=== PATIENT | female | born 1985 | race Caucasian/White ===

== ENCOUNTER 2016-05-02 10:37 | Observation (INO) | payer OTHER ==
--- NOTE | ~2016-05-02 | HP ---
Unit #: [id number] #: [id number] Patient: MOE CALVIN [id number] [address] [place], [place] [address] [id number] I MR#: [id number] NAME: MOE CALVIN ROOM: 464 Age: 30 Sex: F Admission Date: 05/02/2016 : 1985 Attending Physician: Elieser Jordan M.D. Primary Care Physician: [facility] HISTORY AND PHYSICAL ADMITTING DIAGNOSES 1. Right ureteral stone. 2. Urinary tract infection. CHIEF COMPLAINT Right flank pain. HISTORY OF PRESENT ILLNESS The patient is a pleasant 30-year-old female with a history of nephrolithiasis. She has passed multiple stones spontaneously and has also previous had an ESWL. She presents with a one-day history of right flank and lower quadrant pain. She has had subjective fever at home but no documented fevers. CT scan of the abdomen and pelvis revealed a right 7 mm proximal ureteral stone. Urinalysis revealed pyuria. PAST MEDICAL HISTORY Nephrolithiasis. PAST SURGICAL HISTORY 1. Cystoscopy. 2. Left ESWL. HOME MEDICATIONS None. ALLERGIES 1. Cephalosporins. 2. Sulfa. REVIEW OF SYSTEMS Positive for right flank pain, positive for low-grade fevers. Negative for hematuria. Negative for dysuria. PHYSICAL EXAMINATION VITAL SIGNS: Afebrile. Vital signs stable. HEENT: Normocephalic, atraumatic. LUNGS: Patient is breathing comfortably. ABDOMEN: Soft, nontender, nondistended. EXTREMITIES: No clubbing, cyanosis, or edema. DIAGNOSTIC STUDIES LABORATORY: White blood cell count and creatinine are within normal limits. Urinalysis is consistent with pyuria. Unit #: [id number] #: [id number] Patient: MOE CALVIN IMAGING: CT scan, reviewed, with a right 7 mm proximal ureteral stone. ASSESSMENT AND PLAN Right ureteral stone with urinary tract infection. PLAN 1. The patient will undergo a cystoscopy and right stent placement. 2. She has been given Levaquin. 3. Urine culture has been sent. 4. If she is afebrile, she will likely be able to go home tonight on p.o. antibiotics. If she is febrile, she will be admitted. She will need definitive treatment of the stone in the future. Dictated by Ministerio Vieira/dimas TD: 05/02/2016 19:29 JOB #: [id number] HISTORY AND PHYSICAL X Elieser Jordan MD X HISTORY AND PHYSICAL
--- NOTE | ~2016-05-02 | DS ---
Unit #: [id number] #: [id number] Patient: MOE CALVIN [id number] [address] [address] [id number] I MR#: [id number] NAME: MOE CALVIN ROOM: 464 Age: 30 Sex: F Admission Date: 05/02/2016 : 1985 Discharge Date: 05/02/2016 Attending Physician: Elieser Jordan M.D. [facility] DISCHARGE SUMMARY ADMITTING DIAGNOSES 1. Right ureteral stone. 2. Urinary tract infection. DISCHARGE DIAGNOSES 1. Right ureteral stone. 2. Urinary tract infection. 3. Status post cystoscopy and stent placement. ADMITTING INFORMATION The patient is a pleasant 30-year-old female with a right proximal ureteral stone and pyuria. She is afebrile. She is being admitted for further management. HOSPITAL COURSE The patient was admitted. She underwent cystoscopy and right stent placement. She will be monitored for fevers. She has been given IV Levaquin. A urine culture has been sent. Assuming she is afebrile, she will be sent home tonight. DISCHARGE MEDICATIONS 1. Percocet 7.5 mg 1 or 2 p.o. q.6 hours p.r.n. 2. Cipro 500 mg p.o. b.i.d. FOLLOWUP She will follow up for stone treatment next week, which will be an ESWL. She will follow up sooner with any concerns, including temperature greater than 101, inability to tolerate fluids, pain not controlled by p.o. pain medications, chest pain, shortness of breath, unilateral lower extremity swelling or any other concerns. We will follow up her culture, as well. Dictated by... Elieser Jordan M.D. FLACA/brice TD: 05/03/2016 13:29 JOB #: [id number] Unit #: [id number] #: [id number] Patient: MOE CALVIN DISCHARGE SUMMARY X Elieser Jordan MD X DISCHARGE SUMMARY
--- NOTE | ~2016-05-02 | CT4 ---
[facility] A Service of [facility] RADIOLOGY TEXT RESULTS PATIENT: MOE CALVIN LOCATION: C4 464-01 : 84 UNIT #: [id number] AGE: [address]: Elieser Jordan MD SEX: F ORDER DR: [id number] [facility]. [place], [place] [address] [id number] E MR#: [id number] Acc #: [id number] NAME: MOE CALVIN : 1985 SEX: F STUDY DATE/TIME: 05/02/2016 11:14 UNIT: CHRIST ROOM: STUDY DESCRIPTION: CT Abd and Pelv Wo Cont Attending Physician: Aashish Carrera Aprn Ordering Physician: Ed Morgan Patel M.D. [facility] REPORT This report is preliminary unless electronic signature is present EXAM CT abdomen and pelvis without contrast. HISTORY Right-sided flank pain onset this morning. History of kidney stones. COMPARISON CT abdomen and pelvis, 09/09/2015. TECHNIQUE Axial images performed through the abdomen and pelvis without contrast. Multiplanar reconstructed images reviewed at a workstation. This CT exam was performed with one or more of the following radiation dose reduction techniques: automatic exposure control, adjustment of mA and/or kV according to patient size, and iterative reconstruction. FINDINGS There are several noncalcified pulmonary nodules both lung bases, all measuring less than 5 mm, most likely reflect benign disease. These are unchanged from the patient's prior CT scan. Liver, spleen, and gallbladder appear normal. Pancreas appears normal. The adrenal glands are unremarkable. There is mild right-sided hydronephrosis and proximal hydroureter with a 7 mm proximal right ureteral stone just below the UPJ. There is increased attenuation within the renal pyramids bilaterally, may represent a nephrocalcinosis and may be indicative of medullary sponge kidney. Visualized GI tract unremarkable. Aorta and IVC appear normal. The appendix normal. [facility] A Service of [facility] RADIOLOGY TEXT RESULTS PATIENT: MOE CALVIN LOCATION: [facility] 464-01 : 84 UNIT #: [id number] AGE: [address]: Elieser Jordan MD SEX: F ORDER DR: PELVIS: Bladder unremarkable. The uterus is retroverted. Osseous structures and soft tissues appear normal. IMPRESSION 1. 7 mm proximal right ureteral stone with mild right-sided hydronephrosis. 2. Increased attenuation within the renal pyramids bilaterally, may represent nephrocalcinosis, possibly on the basis of medullary sponge kidney. Dictated by... Eli Hager M.D. THIS IS AN ELECTRONICALLY VERIFIED REPORT Eli Hager M.D. at 05/02/2016 5:09 PM FABIEN/ramana TD: 05/02/2016 13:45 JOB #: [id number] MEDICAL IMAGING REPORT COPY
--- NOTE | ~2016-05-02 | OR ---
Unit #: [id number] #: [id number] Patient: MOE CALVIN [id number] [address] [place], [place] [address] [id number] Marlena MR#: [id number] NAME: MOE CALVIN ROOM: 464 Date of Procedure: 05/02/2016 Admission Date: 05/02/2016 Surgeon: Elieser Jordan M.D. : 1985 Attending Physician: Elieser Jordan M.D. Primary Care Physician: [facility]. OPERATIVE REPORT PREOPERATIVE DIAGNOSES 1. Right ureteral stone. 2. Urinary tract infection. POSTOPERATIVE DIAGNOSES 1. Right ureteral stone. 2. Urinary tract infection. PROCEDURES PERFORMED 1. Cystoscopy. 2. Right retrograde pyelogram. 3. Interpretation of right retrograde pyelogram. 4. Right 4.8-Bengali variable double-J stent, no string attached. ANESTHESIA General. FINDINGS Stone visible in right distal ureter. INDICATIONS FOR PROCEDURE The patient is a pleasant 30-year-old female, who presented with a right proximal ureteral stone which was proximal 7 mm as well as pyuria. Risks, benefits, alternatives including bleeding, infection, damage to adjacent structures, need for further surgery, need for nephrostomy tube, and all other risks were discussed with the patient. Informed consent was obtained. She wished to proceed. DESCRIPTION OF PROCEDURE The patient was taken to the operative suite and properly identified. After the application of satisfactory general anesthetic, the patient was placed in dorsal lithotomy position. All pressure points were padded to satisfaction of surgical, anesthetic, and nursing teams. She had been given intravenous Levaquin. I introduced a rigid 22-Bengali cystoscope. Bladder had no tumors, stones, or masses. I identified the right ureteral orifice. The stone was radiopaque in the right distal ureter. It was an obstructing stone, but I was able to manipulate the wire by this and into the renal pelvis. I passed a 5-Bengali Pollack catheter by the stone and into the renal pelvis. There was a hydronephrotic drip. This was sent for culture. It was not grossly purulent. I gently injected contrast and I performed a right retrograde pyelogram. The findings were as follows. Unit #: [id number] #: [id number] Patient: MOE CALVIN Interpretation of right retrograde pyelogram. There was a single collecting system. There was a filling defect in the right distal ureter consistent with the stone. There is mild hydroureteronephrosis. I then replaced a wire and passed a 4.8-Bengali variable double-J stent, which coiled in the kidney and in the bladder. No string was attached. Bladder was emptied. The scope was removed. The patient tolerated the procedure well without complications. PLAN The plan will be for the patient to be observed. She is afebrile. We will send her home tonight on Cipro. We will follow up urine culture. She will need a definitive treatment of the stone next week. Dictated by... Ministerio Vieira/ananda TD: 05/02/2016 21:30 JOB #: [id number] OPERATIVE REPORT X Elieser Jordan MD X PROCEDURE OPERATIVE NOTE
[2016-05-02 10:25] LABS: URINE SOURCE CLEAN CATCH
[2016-05-02 10:25] LABS: BASOPHIL% 0.5 % (0-2.5); EOSINOPHIL# 0.2 X10e3 (0-0.7); EOSINOPHIL% 2.3 % (0.0-7.0); HEMATOCRIT 47.8 % (35.0-45.0); HEMOGLOBIN 16.3 gm/dL (12.0-16.0); LYMPHOCYTE# 2.7 X10e3 (1.0-3.5); LYMPHOCYTE% 29.3 % (17.0-45.0); MEAN CELL VOLUME 98.5 FL (83-96); MEAN CORPUSCULAR HEMOGLOBIN 33.6 PG (28-34); MEAN CORPUSCULAR HGB CONC 34.1 g/dL (30-36); MEAN PLATELET VOLUME 10.2 FL (6.5-11.5); MONOCYTE# 0.6 X10e3 (0-1.0); MONOCYTE% 6.3 % (3.0-12.0); NEUTROPHIL# 5.7 X10e3 (1.5-7.1); NEUTROPHIL% 61.6 % (40-75); PLATELET COUNT 251 X10e3 (140-420); RED BLOOD COUNT 4.85 X10e (3.90-5.30); RED CELL DISTRIBUTION WIDTH 12.9 % (11.0-15.5); WHITE BLOOD COUNT 9.2 X10e3 (4.0-10.5)
[2016-05-02 10:26] LABS: DIFF IND NO
[2016-05-02 10:29] LABS: URINE APPEARANCE CLOUDY; URINE BILIRUBIN NEG (NEG); URINE BLOOD 3+ (NEG); URINE COLOR YELLOW; URINE GLUCOSE NEG (NEG); URINE KETONE TRACE (NEG); URINE LEUKOCYTE ESTERASE TRACE (NEG); URINE NITRATE NEG (NEG); URINE PROTEIN 1+ (NEG); URINE SPECIFIC GRAVITY 1.025 (1.003-1.035)
[2016-05-02 10:31] LABS: CULTURE INDICATED? YES; URBCS1 AUWI 100-200 /[HPF] (0-2); URINE BACTERIA AUWI 1+ (NEGATIVE); URINE SQUAMOUS EPITHELIAL CELL MOD /[HPF]
[~2016-05-02 10:37] MED LIST: ASPIRIN81 M1 PO; BACTRIM DS TABL1 TA1 PO; BACTRIM DS TABL1 TAB PO; COUMADIN2.5 MG PO; COUMADIN5 MG PO; DILTIAZEM 24HR180 M1 PO; FAMOTIDINE20 MG PO; FISH OIL500 M1 PO; FLOMAX0.4 M1 PO; GLUCOSAMINE CHO1 CA1 PO; IMDUR PO; IPRATR-ALBUTEROL3 ML IH; LISINOPRIL20 MG PO; LORTAB 5/500 TA1 TA1 PO; MEDROL PO; NO MEDICATIONS; OCEAN45 ML; PATANOL5 ML OP; PERCOCET 10/3251 TAB PO; PHENERGAN25 MG PO; PULMICORT0.5 MG/2 M IH; SYMBICORT INH; VICODIN 5/500 T1 TAB PO; VYTORIN 10-20 M1 TAB PO; [UNRECOGNIZED DRUG - REMARK]
[2016-05-02 10:51] LABS: ALKALINE PHOSPHATASE 55 U/L (32-92); ALT (SGPT) 33 U/L (10-40); AST (SGOT) 22 U/L (10-42); BILIRUBIN,TOTAL 0.2 mg/dL (0.2-2.0); BLOOD UREA NITROGEN 11 mg/dL (9-23); BUN/CREATININE RATIO 12.22; CARBON DIOXIDE 22 mmol/L (22-31); CHLORIDE 111 mmol/L (100-111); CREATININE SERUM 0.9 mg/dL (0.6-1.4); GLOM FILT RATE Estimated ABOVE60 mL/min (>60); GLUCOSE FASTING 97 mg/dL (70-110); POTASSIUM 3.6 mmol/L (3.5-5.1); SODIUM 140 mmol/L (135-145)
[2016-05-02] MEDS ORDERED: PERCOCET 7.5-31 EACH PO (19:08)
[2016-05-02] MEDS ORDERED: CIPRO PO (19:09)
== END 2016-05-02 20:05 | disposition home or self-care (01) ==
LOC: CED 10:37 → CEDOF 13:56 → C4C 16:20
PROVIDERS: Nurse Practitioner Family
DX: N13.2 Hydronephrosis with renal and ureteral calculous obstruction (principal); N39.0 Urinary tract infection, site not specified; Z87.442 Personal history of urinary calculi; Z88.2 Allergy status to sulfonamides; F17.200 Nicotine dependence, unspecified, uncomplicated
CPT/HCPCS: 36415; 74176; 80053; 81003; 84703; 85025; 87086; 87088; 87186; 96361; 96365; 96375; 96376; 99285; C2617; G0378; J1100; J1170; J1885; J1956; J2250; J2270; J2405; J2550; J2765

== ENCOUNTER 2016-10-07 02:08 | Emergency (ER) | payer OTHER ==
--- NOTE | ~2016-10-07 | CT4 ---
[facility] A Service of [facility] RADIOLOGY TEXT RESULTS PATIENT: MOE CALVIN LOCATION: [facility] : [birth year] UNIT #: [id number] AGE: [address]: AUDIE BERNAL APRN SEX: F ORDER DR: [id number] [facility]. [place], [place] [address] [id number] E MR#: [id number] Acc #: [id number] NAME: MOE CALVIN : 1985 SEX: F STUDY DATE/TIME: 10/07/2016 3:26 UNIT: [facility]ST ROOM: STUDY DESCRIPTION: CT Abd and Pelv Wo Cont Attending Physician: Audie Bernal Aprn Ordering Physician: Audie Bernal Aprn Primary Care Physician: [facility] IMAGING REPORT This report is preliminary unless electronic signature is present EXAM Noncontrast CT abdomen and pelvis 10/07/2016 HISTORY 30-year-old female complains of right flank pain with nausea, vomiting since 23:30 on 10/06/2016. History of kidney stones. COMPARISON CT abdomen and pelvis 05/02/2016. PROCEDURE 3 mm noncontrast axial images through the abdomen and pelvis. Enteric contrast not administered. Sagittal and coronal reformatted images were obtained. This CT examination was performed with one or more of the following radiation dose reduction techniques: automatic exposure control, adjustment of mA and/or kV according to patient size, and iterative reconstruction. FINDINGS Calcified granulomatous changes are present within the left lower lobe. No acute basilar airspace disease is identified. There is minimal medial bibasilar atelectasis. Small nonobstructing bilateral renal stones are present. No right or left ureteral stone, hydronephrosis or perinephric inflammation is seen. The urinary bladder is normal. The liver, gallbladder, spleen, pancreas and adrenal glands are normal. Appendix is normal. Bowel is nonthickened and noninflamed. PELVIS: Small quantity of pelvic free fluid. Urinary bladder, rectum and uterus are within normal limits. [facility] A Service of [facility] RADIOLOGY TEXT RESULTS PATIENT: MOE CALVIN [id number] [birth year] UNIT #: [id number] AGE: [address]: AUDIE BERNAL APRN SEX: F ORDER DR: No acute osseous abnormalities. IMPRESSION 1. Small nonobstructing bilateral renal stones. No ureteral stone, hydronephrosis or perinephric inflammation. 2. The appendix is normal. 3. Small quantity of pelvic free fluid is present which may be physiologic. Dictated by... Fiorella Wooten M.D. THIS IS AN ELECTRONICALLY VERIFIED REPORT Fiorella Wotoen M.D. at 10/07/2016 9:58 PM MARITO/dudley TD: 10/07/2016 11:09 JOB #: [id number] MEDICAL IMAGING REPORT Page 1 of 1 COPY
[~2016-10-07 02:08] MED LIST changes: +CIPRO PO; +PERCOCET 7.5-31 EACH PO
[2016-10-07 02:56] LABS: URINE SOURCE CATH
[2016-10-07 02:59] LABS: BASOPHIL# 0.1 X10e3 (0-0.3); BASOPHIL% 0.5 % (0-2.5); EOSINOPHIL# 0.2 X10e3 (0-0.7); HEMATOCRIT 44.8 % (35.0-45.0); HEMOGLOBIN 15.9 gm/dL (12.0-16.0); LYMPHOCYTE# 3.4 X10e3 (1.0-3.5); LYMPHOCYTE% 31.2 % (17.0-45.0); MEAN CELL VOLUME 98.8 FL (83-96); MEAN CORPUSCULAR HEMOGLOBIN 35.1 PG (28-34); MEAN CORPUSCULAR HGB CONC 35.5 g/dL (30-36); MEAN PLATELET VOLUME 9.8 FL (6.5-11.5); MONOCYTE# 0.7 X10e3 (0-1.0); MONOCYTE% 6.1 % (3.0-12.0); NEUTROPHIL# 6.6 X10e3 (1.5-7.1); NEUTROPHIL% 60.2 % (40-75); PLATELET COUNT 235 X10e3 (140-420); RED BLOOD COUNT 4.53 X10e (3.90-5.30); RED CELL DISTRIBUTION WIDTH 12.7 % (11.0-15.5); WHITE BLOOD COUNT 10.9 X10e3 (4.0-10.5)
[2016-10-07 03:01] LABS: DIFF IND NO
[2016-10-07 03:02] LABS: URINE APPEARANCE CLEAR; URINE BILIRUBIN NEG (NEG); URINE BLOOD NEG (NEG); URINE COLOR YELLOW; URINE GLUCOSE NEG (NEG); URINE KETONE NEG (NEG); URINE LEUKOCYTE ESTERASE NEG (NEG); URINE NITRATE NEG (NEG); URINE PH 5.5 (5-8); URINE PROTEIN TRACE (NEG); URINE SPECIFIC GRAVITY 1.037 (1.003-1.035); URINE UROBILINOGEN 0.2 MG/DL (NEG)
[2016-10-07 03:08] LABS: CULTURE INDICATED? NO
[2016-10-07 03:21] LABS: ALBUMIN SERUM 4.2 g/dL (3.5-5.0); BILIRUBIN,TOTAL 0.5 mg/dL (0.2-2.0); CALCIUM SERUM 9.2 mg/dL (8.4-10.2); CREATININE SERUM 0.8 mg/dL (0.6-1.4); GLOM FILT RATE Estimated 98.3 mL/min (>60); POTASSIUM 3.8 mmol/L (3.5-5.1)
[2016-10-07 03:23] LABS: BILIRUBIN, DIRECT 0.1 mg/dL (0.0-0.2); BILIRUBIN,INDIRECT 0.4 mg/dL (0.0-0.9)
== END 2016-10-07 06:34 | disposition home or self-care (01) ==
LOC: CED 02:08
PROVIDERS: Nurse Practitioner Family
DX: N20.0 Calculus of kidney (principal); F17.210 Nicotine dependence, cigarettes, uncomplicated; Z87.442 Personal history of urinary calculi; Z98.890 Other specified postprocedural states; Z88.1 Allergy status to other antibiotic agents; Z88.8 Allergy status to other drugs, medicaments and biological substances
CPT/HCPCS: 36415; 51701; 74176; 80048; 80076; 81003; 84703; 85025; 96361; 96374; 96375; 99284; J2270; J2405; J2550